=== PATIENT | male | born 1960 | race Caucasian/White ===

== ENCOUNTER 2016-08-27 14:43 | Emergency (ER) | payer MEDICAID, MEDICARE, OTHER ==
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
[2016-08-27] MEDS ORDERED: Dexamethasone Sodium Phos 4 mg/mL Vial IM STA (14:58)
[2016-08-27] MEDS ORDERED: Dexamethasone Sodium Phos 10 mg/mL PF Vial ONE (15:19)
== END 2016-08-27 16:07 | disposition home or self-care (01) ==
LOC: ER 14:43
DX: L30.8 Other specified dermatitis (principal); L25.9 Unspecified contact dermatitis, unspecified cause
CPT/HCPCS: Z7502

== ENCOUNTER 2017-01-23 22:00 | Emergency (ER) | payer MEDICARE, MEDICAID ==
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
--- NOTE | 2017-01-24 08:21 | Diagnostic Imaging Report ---
CT abdomen and pelvis without intravenous contrast Indication: Low-back and right hip pain Comparison: None, Technique: Axial images were obtained from the lung bases to the bilateral proximal femurs without IV contrast. Coronal reconstructions were made. total DLP: [id number], [id number] FINDINGS: Atelectatic changes of the lung bases are noted. Assessment of the solid organs is limited due to lack of IV contrast. There is fatty infiltration of the liver. No evidence of focal lesions. No focal splenic, or pancreatic lesions. Note exam is also limited due to motion. No focal adrenal lesions. No hydronephrosis or nephrolithiasis. Bilateral small fat-containing hernias are noted. Bilateral total hip arthroplasties are noted. Streak artifact from hip arthroplasty limits evaluation of the pelvis. No appendicitis. No evidence of bowel obstruction. There is minimal diverticulosis. No evidence of free air or free fluid. Mild atherosclerosis is noted. Diffuse degenerative changes of the spine are noted including discogenic and facet degenerative changes. Mild paraspinal subcutaneous edema is noted. IMPRESSION: No evidence of bowel obstruction. No evidence of appendicitis. Diffuse degenerative changes of the spine. Bilateral total hip arthroplasties with bilateral distal femoral stems incompletely visualized. Consider additional images if indicated. Hepatic steatosis. Mild atherosclerosis.
== END 2017-01-23 23:25 | disposition home or self-care (01) ==
LOC: ER 22:00
DX: S39.012A Strain of muscle, fascia and tendon of lower back, initial encounter (principal); I10 Essential (primary) hypertension; V89.2XXA Person injured in unspecified motor-vehicle accident, traffic, initial encounter; Y93.89 Activity, other specified; Y92.488 Other paved roadways as the place of occurrence of the external cause; Y99.8 Other external cause status
CPT/HCPCS: 99284; 96374; 74176; J1885; Z7502

== ENCOUNTER 2017-04-26 08:15 | Emergency (ER) | payer MEDICARE, MEDICAID ==
--- NOTE | 2017-04-26 08:42 | ED Physician Chart ---
ED Chief Complaint/HPI - Patient Information Date Seen:: 04/26/17 Time Seen:: 08:30 Chief Complaint:: Left Heel Pain History of Present Illness:: onset x one day of left heel pain after a mild twisting type injury; pt denies H /As, trauma, neck pain, C/P, SOB, Abd. Pain, A/N/V/D/C, fever, chills, urinary s /s, paresthesias, weakness, gait changes, or dizziness/vertigo; pt' s last tetanus shot: < 5 years; UTD Allergies:: Allergies Allergy/AdvReac Type Severity Reaction Status Date / Time No Known Allergies Allergy Verified 07/24/16 10:43 Vitals:: Vital Signs - 8 hr 04/26/17 08:28 Temp 97.5 F HR 79 RR 16 BP 165/73 O2 Sat % 97 Historian:: Patient Review:: Nurse's Note Reviewed ED Review of Systems - Review of Systems General/Constitutional: No fever, No chills, No weight loss, No weakness, No diaphoresis, No edema, No loss of appetite Skin: No skin lesions, No rash, No bruising Head: No headache, No light-headedness Eyes: No loss of vision, No pain, No diplopia ENT: No earache, No nasal drainage, No sore throat, No tinnitus Neck: No neck pain, No swelling, No thyromegaly, No stiffness, No mass noted Cardio Vascular: No chest pain, No palpitations, No PND, No orthopnea, No edema Pulmonary: No SOB, No cough, No sputum, No wheezing GI: No nausea, No vomiting, No diarrhea, No pain, No melena, No hematochezia, No constipation, No hematemesis G/U: No dysuria, No frequency, No hematuria Musculoskeletal: Bone or joint pain, Back pain, Muscle pain Endocrine: No polyuria, No polydipsia Psychiatric: No prior psych history, No depression, No anxiety, No suicidal ideation Hematopoietic: No bruising, No lymphadenopathy Allergic/Immuno: No urticaria, No angioedema Neurological: No syncope, No focal symptoms, No weakness, No paresthesia, No headache, No seizure, No dizziness, No confusion, No vertigo ED Past Medical History - Past Medical History Obtainable: Yes Past Medical History: HTN Family History: HTN Social History: Non Smoker, No Alcohol, No Drug Use, Single Surgical History: None Psychiatricy History: None Medication: Reviewed Family Medical History - Family Member Mother History Unknown: Yes Ethnicity: Non- Living Status: Hx Family Coronary Artery Disease: No Hx Family Hypertension: Yes Hx Family Diabetes: Yes ED Physical Exam - Physical Examination General/Constitutional: Awake, Well-developed, well-nourished, Alert, No distress, GCS 15, Non-toxic appearing, Ambulatory Head: Atraumatic Eyes: Lids, conjuctiva normal, PERRL, EOMI Skin: Nl inspection, No rash, No skin lesions, No ecchymosis, Well hydrated, No lymphadenopathy ENMT: External ears, nose nl, Nasal exam nl, Lips, teeth, gums nl Neck: Nontender, Full ROM w/o pain, No JVD, No nuchal rigidity, No bruit, No mass, No stridor Respiratory: Nl effort/Exclusion, Clear to Auscultation, No Wheeze/Rhonchi/Rales Cardio Vascular: RRR, No murmur, gallop, rubs, NL S1 S2 GI: No tenderness/rebounding/guarding, No organomegaly, No hernia, Normal BS's, Nondistended, No mass/bruits, No McBurney tenderness : No CVA tenderness Extremities: No tenderness or effusion, Full ROM, normal strength in all extremities, No edema, Normal digits & nails Neuro/Psych: Alert/oriented, DTR's symmetric, Normal sensory exam, Normal motor strength, Judgement/insight normal, Mood normal, Normal gait, No focal deficits Misc: normal gait, Normal back, No paraspinal tenderness ED Assessment - Assessment General Assessment: pt deferred X-Rays; pt is asymptomatic upon discharge ED Septic Shock - . Is Septic Shock (SBP<90, OR Lactate>4 mmol\L) present?: No - <6hrs of presentation: Vital Signs: Vital Signs - 8 hr 04/26/17 08:28 Temp 97.5 F HR 79 RR 16 BP 165/73 O2 Sat % 97 ED Reassessment (Disposition) - Reassessment Reassessment:: pt improved; pt is asymptomatic upon discharge; RTER prn if existing s/s reoccur and/or get worse and/or any other new s/s occur; ACIs given for all above Dx; Refer to Orthopedist/[facility]er [facility]; F/U with PMD in one day or prn; RTER prn if concerned Reassessment Condition:: Improved - Diagnosis Diagnosis:: Dx: Left Heel Pain-Resolved; Left Heel Sprain; Left Foot Sprain and Strain - Aftercare/Follow up Instructions Aftercare/Follow-Up Instructions:: Counseled pt regarding lab results/diagnosis & need follow up, Refer to Discharge Instructions, Counseled pt & family regarding lab results/diagnosis & need follow up - Patient Disposition Discharge/Transfer:: Home Condition at Disposition:: Stable, Improved
== END 2017-04-26 08:45 | disposition home or self-care (01) ==
LOC: ER 08:15
DX: S93.602A Unspecified sprain of left foot, initial encounter (principal); I10 Essential (primary) hypertension; X50.1XXA Overexertion from prolonged static or awkward postures, initial encounter; Y93.89 Activity, other specified; Y92.89 Other specified places as the place of occurrence of the external cause; Y99.8 Other external cause status
CPT/HCPCS: Z7502

== ENCOUNTER 2017-08-25 21:21 | Emergency (ER) | payer MEDICARE, MEDICAID ==
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
--- NOTE | 2017-08-26 09:25 | Diagnostic Imaging Report ---
Cervical spine 5 views Indication: pain Comparison: none Findings: Evaluation of the lower cervical spine is limited due to body habitus. Moderate to advanced generalized degenerative changes are seen with multilevel marginal osteophytic spurring multilevel mild disc space loss of height. No acute compression fracture or subluxation. No prevertebral soft tissue swelling. The atlantodental articulation is preserved. Atherosclerosis is noted. Impression: No evidence of an acute compression fracture or subluxation. If there has been history of trauma, consider further assessment with CT cervical spine examination. Moderate to advanced generalized degenerative changes Atherosclerotic vascular disease. In the setting of trauma, if clinical symptoms persist and there is continued concern for an occult fracture, follow up exams in 5-7 days is suggested.
== END 2017-08-25 23:34 | disposition home or self-care (01) ==
LOC: ER 21:21
DX: M54.2 Cervicalgia (principal); I10 Essential (primary) hypertension
CPT/HCPCS: 99284; 96372; 72050; J1885; Z7502

== ENCOUNTER 2018-01-13 11:31 | Emergency (ER) | payer MEDICARE, MEDICAID ==
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
== END 2018-01-13 12:21 | disposition home or self-care (01) ==
LOC: ER 11:31
DX: S39.012A Strain of muscle, fascia and tendon of lower back, initial encounter (principal); I10 Essential (primary) hypertension; X50.0XXA Overexertion from strenuous movement or load, initial encounter; Y93.89 Activity, other specified; Y92.89 Other specified places as the place of occurrence of the external cause; Y99.8 Other external cause status
CPT/HCPCS: 99283; 96372; J1885; Z7502

== ENCOUNTER 2018-04-15 10:54 | Emergency (ER) | payer MEDICARE, MEDICAID ==
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
--- NOTE | 2018-04-16 08:34 | Diagnostic Imaging Report ---
Right shoulder (3 views) HISTORY: Pain No acute bony abnormalities. No fractures. No dislocation. A dense focus of calcification is seen within the soft tissues adjacent to the lateral aspect of the humeral head. Findings are consistent with changes of calcific tendinitis. Narrowing and hypertrophic bone formation seen about the acromioclavicular joint. Calcification is seen in the soft tissues of right neck. Changes may be vascular. IMPRESSION: 1. No acute bony abnormalities 2. Findings consistent with calcific tendinitis 3. Degenerative changes 4. Question atherosclerotic calcification within the right neck region. If necessary, an ultrasound exam would provide for further assessment.
== END 2018-04-15 12:03 | disposition home or self-care (01) ==
LOC: ER 10:54
DX: M25.511 Pain in right shoulder (principal); M25.811 Other specified joint disorders, right shoulder; I10 Essential (primary) hypertension; F32.9 Major depressive disorder, single episode, unspecified; V19.9XXA Pedal cyclist (driver) (passenger) injured in unspecified traffic accident, initial encounter; Y93.89 Activity, other specified; Y92.89 Other specified places as the place of occurrence of the external cause; Y99.8 Other external cause status
CPT/HCPCS: 99284; 96372; 73030; J1885; Z7502

== ENCOUNTER 2018-07-08 09:54 | Emergency (ER) | payer MEDICARE, MEDICAID ==
--- NOTE | 2018-07-08 10:22 | ED Physician Chart ---
ED Chief Complaint/HPI - Patient Information Date Seen:: 07/08/18 Time Seen:: 10:09 Chief Complaint:: bad cold, needs a work note History of Present Illness:: "bad cold" x few days wants a work note denies N, V, D, C, F, C. Allergies:: Allergies Allergy/AdvReac Type Severity Reaction Status Date / Time No Known Allergies Allergy Verified 07/08/18 10:08 Vitals:: Vital Signs - 8 hr 07/08/18 10:09 Temp 97.2 F HR 77 RR 18 BP 133/57 O2 Sat % 95 Historian:: Patient Review:: Nurse's Note Reviewed ED Review of Systems - Review of Systems General/Constitutional: No fever, No chills, No weight loss, No weakness, No diaphoresis, No edema, No loss of appetite Skin: No skin lesions, No rash, No bruising Head: No headache, No light-headedness Eyes: No loss of vision, No pain, No diplopia ENT: No earache, No nasal drainage, No sore throat, No tinnitus Neck: No neck pain, No swelling, No thyromegaly, No stiffness, No mass noted Cardio Vascular: No chest pain, No palpitations, No PND, No orthopnea, No edema Pulmonary: No SOB, No cough, No sputum, No wheezing GI: No nausea, No vomiting, No diarrhea, No pain, No melena, No hematochezia, No constipation, No hematemesis G/U: No dysuria, No frequency, No hematuria Musculoskeletal: No bone or joint pain, No back pain, No muscle pain Endocrine: No polyuria, No polydipsia Psychiatric: No prior psych history, No depression, No anxiety, No suicidal ideation Hematopoietic: No bruising, No lymphadenopathy Allergic/Immuno: No urticaria, No angioedema Neurological: No syncope, No focal symptoms, No weakness, No paresthesia, No headache, No seizure, No dizziness, No confusion, No vertigo ED Past Medical History - Past Medical History Obtainable: Yes Past Medical History: No significant medical hx Family Medical History - Family Member Mother History Unknown: Yes Ethnicity: Non- Living Status: Hx Family Coronary Artery Disease: No Hx Family Hypertension: Yes Hx Family Diabetes: Yes ED Physical Exam - Physical Examination General/Constitutional: Awake, Well-developed, well-nourished, Alert, No distress, GCS 15, Non-toxic appearing, Ambulatory Head: Atraumatic Eyes: Lids, conjuctiva normal, PERRL, EOMI Skin: Nl inspection, No rash, No skin lesions, No ecchymosis, Well hydrated, No lymphadenopathy ENMT: External ears, nose nl, TM canals nl, Nasal exam nl, Lips, teeth, gums nl , Oropharynx nl, Tonsils nl Neck: Nontender, No nuchal rigidity, No stridor Respiratory: Nl effort/Exclusion, Clear to Auscultation, No Wheeze/Rhonchi/Rales Cardio Vascular: RRR, No murmur, gallop, rubs, NL S1 S2 GI: No tenderness/rebounding/guarding, No organomegaly, No hernia, Normal BS's, Nondistended, No mass/bruits, No McBurney tenderness : No CVA tenderness Extremities: No tenderness or effusion, Full ROM, normal strength in all extremities, No edema, Normal digits & nails Neuro/Psych: Alert/oriented, Normal sensory exam, Normal motor strength, Judgement/insight normal, Mood normal, Normal gait, No focal deficits Misc: Normal back, No paraspinal tenderness ED Septic Shock - . Is Septic Shock (SBP<90, OR Lactate>4 mmol\\L) present?: No - <6hrs of presentation: Vital Signs: Vital Signs - 8 hr 07/08/18 10:09 Temp 97.2 F HR 77 RR 18 BP 133/57 O2 Sat % 95 ED Reassessment (Disposition) - Reassessment Reassessment Condition:: Unchanged - Diagnosis Diagnosis:: Viral syndrome - Aftercare/Follow up Instructions Aftercare/Follow-Up Instructions:: Refer to Discharge Instructions Notes:: rest and fluids return to work tomorrow (off today) Medication Prescribed:: none - Patient Disposition Discharge/Transfer:: Home Condition at Disposition:: Stable, Unchanged
== END 2018-07-08 10:36 | disposition home or self-care (01) ==
LOC: ER 09:54
DX: B34.9 Viral infection, unspecified (principal)
CPT/HCPCS: Z7502

== ENCOUNTER 2018-11-20 13:34 | Emergency (ER) | payer MEDICARE, MEDICAID ==
--- NOTE | 2018-11-20 14:35 | ED Physician Chart ---
ED Chief Complaint/HPI - Patient Information Date Seen:: 11/20/18 Time Seen:: 13:45 Chief Complaint:: Dizziness History of Present Illness:: onset x 2 days of weakness and dizziness; pt denies trauma, H/As, neck pain, C/P , SOB, Abd. Pain, A/N/V/D/C, fever, chills, or urinary s/s Allergies:: Allergies Allergy/AdvReac Type Severity Reaction Status Date / Time No Known Allergies Allergy Verified 07/08/18 10:08 Vitals:: Vital Signs - 8 hr 11/20/18 13:45 Temp 97.9 F HR 76 RR 16 BP 120/36 O2 Sat % 97 Historian:: Patient Review:: Nurse's Note Reviewed, Old Chart Reviewed ED Review of Systems - Review of Systems General/Constitutional: No fever, No chills, No weight loss, Weakness, No diaphoresis, No edema, No loss of appetite Skin: No skin lesions, No rash, No bruising Head: No headache, No light-headedness Eyes: No loss of vision, No pain, Diplopia ENT: No earache, No nasal drainage, No sore throat, No tinnitus Neck: No neck pain, No swelling, No thyromegaly, No stiffness, No mass noted Cardio Vascular: No chest pain, No palpitations, No PND, No orthopnea, No edema Pulmonary: No SOB, No cough, No sputum, No wheezing GI: No nausea, No vomiting, No diarrhea, No pain, No melena, No hematochezia, No constipation, No hematemesis G/U: No dysuria, No frequency, No hematuria, No nacturia Musculoskeletal: No bone or joint pain, No back pain, No muscle pain Endocrine: No polyuria, No polydipsia Psychiatric: No prior psych history, No depression, No anxiety, No suicidal ideation, No homicidal ideation, No auditory hallucination, No visual hallucination Hematopoietic: No bruising, No lymphadenopathy Allergic/Immuno: No urticaria, No angioedema Neurological: No syncope, No focal symptoms, Weakness, No paresthesia, No headache, No seizure, Dizziness, No confusion, Vertigo ED Past Medical History - Past Medical History Obtainable: Yes Past Medical History: HTN, Dyslipidemia Family History: HTN Social History: Non Smoker, No Alcohol, No Drug Use, Surgical History: None Psychiatricy History: None Medication: Reviewed Family Medical History - Family Member Mother History Unknown: Yes Ethnicity: Non- Living Status: Hx Family Coronary Artery Disease: No Hx Family Hypertension: Yes Hx Family Diabetes: Yes ED Physical Exam - Physical Examination General/Constitutional: Awake, Well-developed, well-nourished, Alert, No distress, GCS 15, Non-toxic appearing, Ambulatory Head: Atraumatic Eyes: Lids, conjuctiva normal, PERRL, EOMI Skin: Nl inspection, No rash, No skin lesions, No ecchymosis, Well hydrated, No lymphadenopathy ENMT: External ears, nose nl, TM canals nl, Nasal exam nl, Lips, teeth, gums nl , Oropharynx nl, Tonsils nl Neck: Nontender, Full ROM w/o pain, No JVD, No nuchal rigidity, No bruit, No mass, No stridor Respiratory: Nl effort/Exclusion, Clear to Auscultation, No Wheeze/Rhonchi/Rales Cardio Vascular: RRR, No murmur, gallop, rubs, NL S1 S2, Carotid/Femoral/Distal pulses equal bilaterally GI: No tenderness/rebounding/guarding, No organomegaly, No hernia, Normal BS's, Nondistended, No mass/bruits, No McBurney tenderness, Rectum exam nl : No CVA tenderness Extremities: No tenderness or effusion, Full ROM, normal strength in all extremities, No edema, Normal digits & nails Neuro/Psych: Alert/oriented, DTR's symmetric, Normal sensory exam, Normal motor strength, Judgement/insight normal, Mood normal, Normal gait, No focal deficits Misc: Normal back, No paraspinal tenderness ED Labs/Radiology/EKG Results - Lab Results Comments:: Reviewed - Radiology Results Comments:: DJD; NAD - EKG Interpretations EKG Time:: 14:13 Rate & Rhythm: 73; NSR Comments:: non-specific st-t changes ED Septic Shock - . Is Septic Shock (SBP<90, OR Lactate>4 mmol\L) present?: No - <6hrs of presentation: Vital Signs: Vital Signs - 8 hr 11/20/18 13:45 Temp 97.9 F HR 76 RR 16 BP 120/36 O2 Sat % 97 ED Reassessment (Disposition) - Reassessment Reassessment Condition:: Improved - Diagnosis Diagnosis:: Weakness; Dizziness; TIA; Cardiac Arrythmias
[2018-11-20 14:53] LABS: % BASOPHILS 0.5 % (0.0-2.0); % EOSINOPHILS 0.3 % (0.0-5.0); % LYMPHOCYTES 11.6 % (20.0-50.0); % MONOCYTES 4.4 % (2.0-10.0); % NEUTROPHILS 83.2 % (40.0-80.0); BASOPHILE ABSOLUTE 0.1 Th/cumm (0-0.2); HEMATOCRIT 40.7 % (41.0-60); HEMOGLOBIN 13.5 gm/dL (12-16); LYMPHOCYTE ABSOLUTE 1.2 Th/cmm (1.5-3.0); MEAN CELL VOLUME 85.5 fl (80-99); MEAN CORPUSCULAR HEMOGLOBIN 28.3 pg (26.0-30.0); MEAN CORPUSCULAR HGB CONC 33.1 pg (28.0-36.0); MEAN PLATELET VOLUME 7.7 fl; MONOCYTE ABSOLUTE 0.4 Th/cmm (0.3-1.0); NEUTROPHILE ABSOLUTE 8.4 Th/cmm (1.8-8.0); PLATELET COUNT 268 Th/cmm (150-400); RED BLOOD COUNT 4.76 Mil/cmm (4.30-5.70); WHITE BLOOD COUNT 10.1 Th/cmm (4.8-10.8)
[2018-11-20 15:09] LABS: INR 0.97 (0.5-1.4); PROTHROMBIN TIME (TEST) 10.1 SECONDS (9.5-11.5)
[2018-11-20 15:13] LABS: ALB/GLOB RATIO 1.5 (1.0-1.8); ALBUMIN 4.7 gm/dL (4.2-5.5); ANION GAP 14.8 (7.0-16.0); BILIRUBIN,TOTAL 0.4 mg/dL (0.3-1.0); CALCIUM SERUM 9.6 mg/dL (8.6-10.3); CARBON DIOXIDE 25.9 mEq/L (21.0-31.0); CREATININE - SERUM 2.1 mg/dL (0.7-1.3); GFR AFRICAN-AMERICAN 41.8 ml/min (>90); GFR NON AFRICAN-AMERICAN 34.5 ml/min; POTASSIUM SERUM 4.7 mEq/L (3.5-5.1); TOTAL PROTEIN,SERUM 7.8 gm/dL (6.0-8.3)
--- NOTE | 2018-11-21 09:18 | Diagnostic Imaging Report ---
CT scan of the brain without intravenous contrast HISTORY: Dizziness headache Total DLP equals 678 CTDI equals 31.7 Axial sections were obtained from the base of the skull to the vertex. There is prominence/enlargement of the ventricular system size. Associated enlargement of cerebral sulci and subarachnoid cisterns. Findings are consistent with changes of generalized cerebral atrophy. No acute parenchymal abnormalities. No acute cerebral hemorrhage. Hypodensity is seen within the supratentorial white matter regions without mass effect. The findings may be associated with chronic small vessel ischemic disease. No extra-axial masses or abnormal fluid collections. IMPRESSION: 1. No acute abnormalities 2. Cerebral atrophy 3. Supratentorial white matter changes that may reflect chronic small vessel ischemic disease
--- NOTE | 2018-11-21 09:20 | Diagnostic Imaging Report ---
CT scan cervical spine History: Neck pain Total DLP equals 678 CTDI equals 31.7 Axial sections were obtained through the cervical spine region. Additional sagittal and coronal reformatted images are provided. No focal bony lesions are seen. Specifically, no fractures are identified. There is limited visualization of the margins of the cervical spinal cord. No obvious extradural soft tissue abnormalities are seen. There is evidence for degenerative osteoarthritis. Spurring and bridging of the lower rectal vertebrae appreciated. The prevertebral soft tissues appear normal. Impression: No acute abnormalities. Degenerative osteoarthritis.
== END 2018-11-20 16:18 | disposition left against medical advice (07) ==
LOC: ER 13:34
DX: I49.9 Cardiac arrhythmia, unspecified (principal); G45.9 Transient cerebral ischemic attack, unspecified; R42 Dizziness and giddiness; R53.1 Weakness; I10 Essential (primary) hypertension; E78.5 Hyperlipidemia, unspecified
CPT/HCPCS: 36415-UA; 70450-TC; 72125-TC; 80053-TC; 80061-TC; 82550-TC; 83880-TC; 84484-TC; 85025-TC; 85610-TC; 93005; 94760

== ENCOUNTER 2018-12-23 09:51 | Emergency (ER) | payer MEDICARE, MEDICAID ==
--- NOTE | 2018-12-23 10:34 | ED Physician Chart ---
ED Chief Complaint/HPI - Patient Information Date Seen:: 12/23/18 Time Seen:: 10:29 Chief Complaint:: fall History of Present Illness:: 58 yr old male who slipped and fell as he was going to restroom at 2 am with c/ o of frontal migraine headache no loc do dizziness or numbness no nv Allergies:: Allergies Allergy/AdvReac Type Severity Reaction Status Date / Time No Known Allergies Allergy Verified 12/23/18 10:05 Vitals:: Vital Signs - 8 hr 12/23/18 10:05 Temp 99 F HR 95 RR 18 BP 125/63 O2 Sat % 98 ED Review of Systems - Review of Systems General/Constitutional: No fever, No chills, No weight loss, No weakness, No diaphoresis, No edema, No loss of appetite Skin: No skin lesions, No rash, No bruising Head: No headache, No light-headedness Eyes: No loss of vision, No pain, No diplopia ENT: No earache, No nasal drainage, No sore throat, No tinnitus Neck: No neck pain, No swelling, No thyromegaly, No stiffness, No mass noted Cardio Vascular: No chest pain, No palpitations, No PND, No orthopnea, No edema Pulmonary: No SOB, No cough, No sputum, No wheezing GI: No nausea, No vomiting, No diarrhea, No pain, No melena, No hematochezia, No constipation, No hematemesis G/U: No dysuria, No frequency, No hematuria Musculoskeletal: No bone or joint pain, No back pain, No muscle pain Endocrine: No polyuria, No polydipsia Psychiatric: No prior psych history, No depression, No anxiety, No suicidal ideation Hematopoietic: No bruising, No lymphadenopathy Allergic/Immuno: No urticaria, No angioedema Neurological: No syncope, No focal symptoms, No weakness, No paresthesia, No headache, No seizure, No dizziness, No confusion, No vertigo ED Past Medical History - Past Medical History Past Medical History: HTN Family Medical History - Family Member Mother History Unknown: Yes Ethnicity: Non- Living Status: Hx Family Coronary Artery Disease: No Hx Family Hypertension: Yes Hx Family Diabetes: Yes ED Physical Exam - Physical Examination General/Constitutional: Awake, Well-developed, well-nourished, Alert, No distress, GCS 15, Non-toxic appearing, Ambulatory Head: Atraumatic Eyes: Lids, conjuctiva normal, PERRL, EOMI Skin: Nl inspection, No rash, No skin lesions, No ecchymosis, Well hydrated, No lymphadenopathy ENMT: External ears, nose nl, Nasal exam nl, Lips, teeth, gums nl Neck: Nontender, Full ROM w/o pain, No JVD, No nuchal rigidity, No bruit, No mass, No stridor Respiratory: Nl effort/Exclusion, Clear to Auscultation, No Wheeze/Rhonchi/Rales Cardio Vascular: RRR, No murmur, gallop, rubs, NL S1 S2 GI: No tenderness/rebounding/guarding, No organomegaly, No hernia, Normal BS's, Nondistended, No mass/bruits, No McBurney tenderness : No CVA tenderness Extremities: No tenderness or effusion, Full ROM, normal strength in all extremities, No edema, Normal digits & nails Neuro/Psych: Alert/oriented, DTR's symmetric, Normal sensory exam, Normal motor strength, Judgement/insight normal, Mood normal, Normal gait, No focal deficits Misc: Normal back, No paraspinal tenderness ED Assessment - Assessment General Assessment: headache fall ED Septic Shock - . Is Septic Shock (SBP<90, OR Lactate>4 mmol\L) present?: No - <6hrs of presentation: Vital Signs: Vital Signs - 8 hr 12/23/18 10:05 Temp 99 F HR 95 RR 18 BP 125/63 O2 Sat % 98 ED Reassessment (Disposition) - Reassessment Reassessment:: fall headache - Diagnosis Diagnosis:: fall headache - Aftercare/Follow up Instructions Aftercare/Follow-Up Instructions:: Counseled pt regarding lab results/diagnosis & need follow up - Patient Disposition Discharge/Transfer:: Home Condition at Disposition:: Stable
[2018-12-23 11:05] LABS: HEMATOCRIT 37.6 % (41.0-60); HEMOGLOBIN 12.9 gm/dL (12-16); MEAN CELL VOLUME 84.5 fl (80-99); MEAN CORPUSCULAR HEMOGLOBIN 28.9 pg (26.0-30.0); MEAN CORPUSCULAR HGB CONC 34.1 pg (28.0-36.0); MEAN PLATELET VOLUME 7.7 fl; PLATELET COUNT 192 Th/cmm (150-400); RED BLOOD COUNT 4.45 Mil/cmm (4.30-5.70); RED CELL DISTRIBUTION WIDTH 13.6 % (11.5-20.0); WHITE BLOOD COUNT 11.3 Th/cmm (4.8-10.8)
[2018-12-23 11:17] LABS: ALB/GLOB RATIO 1.5 (1.0-1.8); ALBUMIN 4.2 gm/dL (4.2-5.5); ALKALINE PHOSPHATASE 67 U/L (34-104); ANION GAP 12.6 (7.0-16.0); BILIRUBIN,TOTAL 0.4 mg/dL (0.3-1.0); BUN - UREA NITROGEN 16 mg/dL (7-25); CALCIUM SERUM 9.1 mg/dL (8.6-10.3); CARBON DIOXIDE 23.2 mEq/L (21.0-31.0); CHLORIDE 100 mEq/L (98-107); CREATININE - SERUM 1.1 mg/dL (0.7-1.3); GFR AFRICAN-AMERICAN > 60.0 ml/min (>90); GFR NON AFRICAN-AMERICAN > 60.0 ml/min; GLUCOSE 105 mg/dL (70-105); POTASSIUM SERUM 3.8 mEq/L (3.5-5.1); SGOT 13 U/L (13-39); SGPT/ALT 13 U/L (7-52); SODIUM SERUM 132 mEq/L (136-145); TOTAL PROTEIN,SERUM 7.1 gm/dL (6.0-8.3)
[2018-12-23 11:31] LABS: BAND NEUTROPHILE 0 % (0-10); BASOPHIL 0 % (0-3); EOSINOPHIL 0 % (0-5); LYMPHOCYTE 7 % (20-50); MONOCYTE 3 % (2-10); NEUTROPHILS 90 % (40-80); PLATELET ESTIMATE ADEQUATE (NORMAL)
--- NOTE | 2018-12-24 10:27 | Diagnostic Imaging Report ---
Head CT without intravenous contrast Indication: Fall Comparison: Head CT 11/20/2018 Technique: Axial images were obtained from the vertex to the skull base without IV contrast. Coronal reconstructions were made. Total DLP: 628, [id number] FINDINGS: Images of the brain obtained without contrast demonstrate no evidence of an acute hemorrhage. Atrophy is noted. Mild white matter disease is noted. The ventricles and basal cisterns are patent. No mass effect or midline shift. Atherosclerosis is noted. No evidence of the skull fracture or significant focal soft tissue swelling. IMPRESSION: No evidence of an acute intracranial hemorrhage. Atrophy. Mild supratentorial white matter disease which is nonspecific and may be due to chronic microvessel ischemia.. Atherosclerotic vascular disease.
--- NOTE | 2018-12-24 10:29 | Diagnostic Imaging Report ---
CT cervical spine without IV contrast HISTORY: Fall COMPARISON: Cervical spine CT on 11/20/2018 Technique: Axial images were obtained from the skull base to the upper thoracic spine without IV contrast. Multiplanar reconstructions were made. Total DLP: 749, CTDI38 FINDINGS Images of the cervical spine obtained without contrast demonstrate no evidence of an acute hemorrhage. Moderate to advanced degenerative changes are seen with multilevel mild disc space loss of height and multilevel marginal osteophytic spurs. No prevertebral soft tissue swelling. There is atherosclerotic vascular disease. The lung apices demonstrate hypoventilatory changes. IMPRESSION: No evidence of acute fracture or subluxation. Moderate to advanced degenerative changes Atherosclerotic vascular disease.
== END 2018-12-23 13:10 | disposition home or self-care (01) ==
LOC: ER 09:51
DX: R51 Headache (principal); I10 Essential (primary) hypertension; W01.0XXA Fall on same level from slipping, tripping and stumbling without subsequent striking against object, initial encounter; Y93.89 Activity, other specified; Y92.89 Other specified places as the place of occurrence of the external cause; Y99.8 Other external cause status
CPT/HCPCS: 36415-UA; 70450-TC; 72125-TC; 80053-TC; 85007-TC; 85025-TC